=== PATIENT | female | born 1965 | race Caucasian/White ===

== ENCOUNTER → 2016-10-17 | Outpatient (CLI) | payer OTHER ==
[~2016-10-17] MED LIST: ALBU1AER9 INH; ATV/1 PO; BUSPIRONE PO; CHOL20009 PO; CLON1TAB3 PO; KETO1AER2 EXT; MILN50TA PO; MOME100A INH; MRN5 PO; NALO1TAB2 PO; NXM/40 PO; OXYC20TA50 PO; OXYSR/10 PO; SERT50TA PO; SUMA100T16 PO; VNTHFA/IN INH
--- NOTE | 2016-10-17 11:38 | DIAGNOSTIC IMAGING REPORT ---
CERVICAL SPINE 5 VIEWS CLINICAL HISTORY: Neck pain. FINDINGS: AP, lateral, bilateral oblique, and odontoid views of the cervical spine are compared to study dated 03/22/2015 and correlated with chest CT dated 03/22/2015. The skeletal structures are osteopenic. There is no radiographic evidence of fracture or subluxation. The odontoid process and lateral masses appear intact on the open mouth view. The spinolaminar line is preserved. Vertebral body height and alignment are maintained. There is straightening of the cervical lordosis. The spinous processes appear intact. Mild disc space narrowing is seen at C5-C6 and C6-C7. The remaining intervertebral disc spaces are normal. Tiny posterior disc osteophyte complexes at C4-C5, C5-C6, and C6-C7 may contribute to minimal acquired compromise of the central canal. Mild neural foraminal narrowing is suggested bilaterally at C5-C6 and on the left at C6-C7 on the oblique views. The patient is edentulous. The prevertebral soft tissues are within normal limits. Visualized apical lung parenchyma appears clear. IMPRESSION: 1. No acute bony abnormality is seen involving the cervical spine. 2. Osteopenia and mild spondylotic change as above. See discussion. Electronically signed by: Julio Parekh M.D. 10/17/2016 11:37 AM Dictated Date/Time: 10/17/2016 11:34 AM
== END | disposition home or self-care (01) ==
LOC: C.RAD 11:07
PROVIDERS: ATTEND Anesthesiology Pain Medicine
DX: M54.16 Radiculopathy, lumbar region (principal); M54.12 Radiculopathy, cervical region; F11.20 Opioid dependence, uncomplicated; F32.9 Major depressive disorder, single episode, unspecified; G89.4 Chronic pain syndrome; M25.512 Pain in left shoulder; M50.30 Other cervical disc degeneration, unspecified cervical region; M54.6 Pain in thoracic spine; M79.1 Myalgia; M79.602 Pain in left arm; M79.7 Fibromyalgia; Z72.0 Tobacco use; M85.88 Other specified disorders of bone density and structure, other site

== ENCOUNTER → 2016-10-24 | Outpatient (CLI) | payer OTHER ==
--- NOTE | 2016-10-24 15:27 | DIAGNOSTIC IMAGING REPORT ---
BONE SCAN WHOLE BODY HISTORY: Pain BACK PAIN, CERVICAL AND THORACIC AREA RADIOTRACER: 25.6 mCi Tc-99m MDP STUDY/IMAGES: Planar anterior and posterior whole body imaging was performed 3 hours following the intravenous administration of radiotracer. SPECT images of the entire spine are acquired COMPARISON: None FINDINGS: Correlation is made with a CT lumbar spine dated 03/22/2015 and cervical spine the same date. There are findings of moderate degenerative activity at the L3-L4 level lumbar spine. This is seen to a lesser extent at L5-S1. Findings of mild degenerative activity of the right to lesser extent left hips. SPECT images show mild increase in activity at L2-L3 and L5-S1, and in addition to the L3-L4 activity. No additional foci of increased activity are identified within the spine. There is no abnormal soft tissue activity characteristics. IMPRESSION: 1. Mild to moderate increase in activity at L3-L4, and to a lesser extent L2-L3 and L5-S1. 2. This is consistent with that of moderate degenerative activity. 3. Mild degenerative activity of the hips and to lesser extent sacroiliac regions. The above report was generated using voice recognition software. It may contain grammatical, syntax or spelling errors. Electronically signed by: Soren Hsu M.D. 10/24/2016 3:26 PM Dictated Date/Time: 10/24/2016 3:21 PM
== END | disposition home or self-care (01) ==
LOC: C.NUCL 10:54
PROVIDERS: ATTEND Anesthesiology Pain Medicine
DX: M54.16 Radiculopathy, lumbar region (principal); M54.12 Radiculopathy, cervical region; G89.4 Chronic pain syndrome; M25.512 Pain in left shoulder; M47.12 Other spondylosis with myelopathy, cervical region; M54.6 Pain in thoracic spine; M50.30 Other cervical disc degeneration, unspecified cervical region

== ENCOUNTER → 2017-03-21 | Outpatient (CLI) | payer OTHER ==
[2017-03-21 12:18] LABS: BLOOD UREA NITROGEN 19 mg/dl (7-18); BUN/CREATININE RATIO 18.6 (10-20); CALCIUM 8.8 mg/dl (8.5-10.1); CARBON DIOXIDE 25 mmol/L (21-32); CHLORIDE 108 mmol/L (98-107); CREATININE 1.01 mg/dl (0.60-1.20); GLUCOSE 70 mg/dl (70-99); POTASSIUM 3.9 mmol/L (3.5-5.1); SODIUM 139 mmol/L (136-145)
[2017-03-21 12:22] LABS: CHOLESTEROL/HDL RATIO 4.2
== END | disposition home or self-care (01) ==
LOC: C.LABPVFM 09:40
PROVIDERS: ATTEND Nurse Practitioner
DX: E55.9 Vitamin D deficiency, unspecified (principal); M79.7 Fibromyalgia; G25.81 Restless legs syndrome; Z13.220 Encounter for screening for lipoid disorders